=== PATIENT | male | born 1985 | race Caucasian/White ===

== ENCOUNTER 2020-06-20 21:06 | Observation (INO) | payer BC ==
[2020-06-20] MEDS ORDERED: Sodium Chloride 0.9% 1,000 ML IV ONE (21:47)
[2020-06-20] MEDS ORDERED: Sodium Chloride 0.9% 2.5 ML Syringe FLUSH PRN (21:47)
[2020-06-20] MEDS ORDERED: Ketorolac 15 MG/ML SDV IVPUSH ONE (21:47)
[2020-06-20] MEDS ORDERED: Sodium Chloride 0.9% 10 ML Syringe FLUSH PRN (21:47)
[2020-06-20] MEDS ORDERED: Ondansetron 4 MG/2 ML SDV IVPUSH ONE (21:47)
[2020-06-20 22:14] LABS: POTASSIUM,K 4.4 mmol/L (3.5-5.1)
[2020-06-20] MEDS ORDERED: Iopamidol 755 MG/ML 500 ML Multipack Bottle IVPUSH STA (22:52)
--- NOTE | 2020-06-20 23:59 | CT ---
INDICATION: Lower abdominal pain. CT ABDOMEN AND PELVIS WITH CONTRAST TECHNIQUE: Multidetector CT imaging was performed through the abdomen and pelvis following intravenous contrast administration using 100 mL Isovue 370. Coronal and sagittal reconstructions were generated. COMPARISON: None. FINDINGS: Lower chest: Minimal bibasilar lung atelectasis. Incidental lymph node calcifications adjacent to the distal esophagus. Liver: Within normal limits. Gallbladder and bile ducts: No gallbladder wall thickening or calcified gallstones. No biliary dilation identified. Pancreas: Unremarkable. Spleen: Unremarkable aside from calcified granulomas. Adrenals: No nodules or masses. Kidneys, ureters, and urinary bladder: No renal masses or hydronephrosis. No bladder mass or definite wall thickening. Gastrointestinal tract and abdominal wall: Normal caliber bowel without wall thickening or obstruction. A few colon diverticula, without evidence of diverticulitis. Calcified appendicolith within the distal appendiceal lumen. Enlarged appendix measuring up to 11 millimeters in diameter with mild periappendiceal fat stranding, consistent with appendicitis. Small fat-containing umbilical and left inguinal hernias. Vascular structures: Normal for age. Peritoneum: No free air, abscess, or significant free fluid. Lymph nodes: No pathologically enlarged nodes identified. Reproductive organs: No pelvic masses. Bones: Normal for age. IMPRESSION: Appendicitis, without evidence of perforation or other complication. DUC LIZARRAGA MD [facility] Dictated by Basil Lizarraga MD @ 06/20/2020 11:41:03 PM Dictated by: Basil Lizarraga MD @ 06/20/2020 23:57:21 (Electronically Signed)
--- NOTE | 2020-06-21 00:01 | EDM.PDOC ---
ED HPI GENERAL MEDICAL PROBLEM - General Chief Complaint: Abdominal Pain Stated Complaint: ABDOMINAL PAIN Time Seen by Provider: 06/20/20 21:08 - History of Present Illness INITIAL COMMENTS - FREE TEXT/NARRATIVE: HISTORY AND PHYSICAL: History of present illness: This a 34-year-old gentleman who presents ER today complaining of abdominal pain x1 day. Patient reports associated nausea with no vomiting or diarrhea. Patient reports he had a bowel movement earlier this morning. Patient reports no flatus since. Patient reports when he ambulates he does have some discomfort. Patient denies any flank pain. Patient denies any recent fevers, shakes, chills, vomiting, diarrhea. Patient has any dysuria, frequency, urgency. Patient denies any hematuria. Patient denies any blood in the stool. Patient reports that he ate some steak this evening and shortly after eating a steak he started feeling discomfort in his lower abdomen. Patient reports history of hypertension, denies any diabetes, liver, lung, kidney problems. Patient has no known drug allergies. Patient denies any tobacco, alcohol, drugs. Patient denies any prior abdominal or chest surgeries in the past. Review of systems: As per history of present illness and below otherwise all systems reviewed and negative. Past medical history: As per history of present illness and as reviewed below otherwise noncontributory. Surgical history: As per history of present illness and as reviewed below otherwise noncontributory. Social history: No reported history of drug or alcohol abuse. Family history: As per history of present illness and as reviewed below otherwise noncontributory. Physical exam: Constitutional: Patient is oriented to person, place, and time. Appears well- developed and well-nourished. No distress. HEENT: Moist mucous membranes Head: Normocephalic and atraumatic Eyes: Right eye exhibits no discharge. Left eye exhibits no discharge. No scleral icterus Neck: Normal range of motion. No tracheal deviation present. Cardiovascular: Normal rate and regular rhythm. Pulmonary: Effort normal, no respiratory distress. Abd: Soft, nondistended, no rebound/guarding, no psoas or obturator signs, no tenderness at Mcberney's point, no Bender's sign. Pt does not present with an exam that would be consistent with an acute surgical abdomen at this time, tenderness palpation is greatest in the right lower quadrant. Patient has mild tenderness palpation to his left lower quadrant. Musculoskeletal: Normal range of motion Neurologic: Alert and oriented to person, place and time. Skin: Beatrice, warm and dry. Psychiatric: Normal mood and affect. Behavior is normal. Judgment and thought content normal. Nursing note and vital signs have been reviewed This patient was seen and evaluated during the 2019 SARS-CoV-2 novel coronavirus pandemic period. Community viral transmission is ongoing at time of this encounter and the emergency department is operating under pandemic response procedures. Diagnostics: [] Therapeutics: [] Assessment and plan: This is a 34-year-old gentleman who presents ER today complaining of abdominal discomfort since this evening after eating dinner. Although the patient complains of left lower quadrant, on exam, the patient's pain is greatest in the right lower quadrant near McBurney's point. Patient had a CT scan in the ED which appears consistent with acute appendicitis. Patient does have an elevated WBC count. Patient's urinalysis is normal. Patient has a normal anion gap with a normal bicarb level. Case will be discussed with Dr. Truong for assistance with further care of the patient. Definitive disposition and diagnosis as appropriate pending reevaluation and review of above. lower abdominal Pain Score (Numeric/FACES): 8 - Related Data Allergies Allergy/AdvReac Type Severity Reaction Status Date / Time No Known Allergies Allergy Verified 06/21/20 06:11 Past Medical History Cardiovascular History: Reports: Hypertension - Infectious Disease History Infectious Disease History: Reports: None Social & Family History - Family History Family Medical History: No Pertinent Family History - Caffeine Use Caffeine Use: Reports: None - Recreational Drug Use Recreational Drug Use: No ED ROS GENERAL - Review of Systems Review Of Systems: See Below ED EXAM, GENERAL - Physical Exam Exam: See Below Course - Vital Signs Last Recorded V/S: Last Vital Signs Temp 98.6 F 06/21/20 16:40 Pulse 104 H 06/21/20 16:40 Resp 18 06/21/20 16:40 BP 116/55 L 06/21/20 16:40 Pulse Ox 94 L 06/21/20 16:40 - Orders/Labs/Meds Labs: Laboratory Tests 06/20/20 06/20/20 06/20/20 Range/Units 21:45 21:45 23:25 WBC 23.01 H (4.0-11.0) K/uL RBC 4.58 (4.50-5.90) M/uL Hgb 14.1 (13.0-17.0) g/dL Hct 41.9 (38.0-50.0) % MCV 91.5 (80.0-98.0) fL MCH 30.8 (27.0-32.0) pg MCHC 33.7 (31.0-37.0) g/dL RDW Std Deviation 42.4 (28.0-62.0) fl RDW Coeff of Ирина 13 (11.0-15.0) % Plt Count 312 (150-400) K/uL MPV 10.30 (7.40-12.00) fL Neut % (Auto) 87.0 H (48.0-80.0) % Lymph % (Auto) 5.0 L (16.0-40.0) % Emmons % (Auto) 8.0 (0.0-15.0) % Eos % (Auto) 0.0 (0.0-7.0) % Baso % (Auto) 0.0 (0.0-1.5) % Neut # (Auto) 20.0 H (1.4-5.7) K/uL Lymph # (Auto) 1.1 (0.6-2.4) K/uL Emmons # (Auto) 1.8 H (0.0-0.8) K/uL Eos # (Auto) 0.0 (0.0-0.7) K/uL Baso # (Auto) 0.0 (0.0-0.1) K/uL Nucleated RBC % 0.0 /100WBC Nucleated RBCs # 0 K/uL Sodium 139 (136-148) mmol/L Potassium 4.4 (3.5-5.1) mmol/L Chloride 100 (98-107) mmol/L Carbon Dioxide 26.0 (21.0-32.0) mmol/L BUN 17 (7.0-18.0) mg/dL Creatinine 1.5 H (0.8-1.3) mg/dL Est Cr Clr Drug Dosing 71.65 mL/min Estimated GFR (MDRD) 53.6 ml/min Glucose 166 H (74-106) mg/dL Calcium 9.4 (8.5-10.1) mg/dL Total Bilirubin 0.5 (0.2-1.0) mg/dL AST 22 (15-37) IU/L ALT 49 (14-63) IU/L Alkaline Phosphatase 106 (46-116) U/L Total Protein 7.8 (6.4-8.2) g/dL Albumin 4.0 (3.4-5.0) g/dL Globulin 3.8 (2.6-4.0) g/dL Albumin/Globulin Ratio 1.1 (0.9-1.6) Lipase 72 L (73-393) U/L Urine Color YELLOW Urine Appearance CLEAR Urine pH 7.5 (5.0-8.0) Ur Specific [place] <= 1.005 (1.001-1.035) Urine Protein NEGATIVE (NEGATIVE) mg/dL Urine Glucose (UA) NEGATIVE (NEGATIVE) mg/dL Urine Ketones NEGATIVE (NEGATIVE) mg/dL Urine Occult Blood NEGATIVE (NEGATIVE) Urine Nitrite NEGATIVE (NEGATIVE) Urine Bilirubin NEGATIVE (NEGATIVE) Urine Urobilinogen 1.0 (<2.0) EU/dL Ur Leukocyte Esterase NEGATIVE (NEGATIVE) SARS-CoV-2 RNA ([place]) (NEGATIVE) 06/20/20 Range/Units 23:59 WBC (4.0-11.0) K/uL RBC (4.50-5.90) M/uL Hgb (13.0-17.0) g/dL Hct (38.0-50.0) % MCV (80.0-98.0) fL MCH (27.0-32.0) pg MCHC (31.0-37.0) g/dL RDW Std Deviation (28.0-62.0) fl RDW Coeff of Ирина (11.0-15.0) % Plt Count (150-400) K/uL MPV (7.40-12.00) fL Neut % (Auto) (48.0-80.0) % Lymph % (Auto) (16.0-40.0) % Emmons % (Auto) (0.0-15.0) % Eos % (Auto) (0.0-7.0) % Baso % (Auto) (0.0-1.5) % Neut # (Auto) (1.4-5.7) K/uL Lymph # (Auto) (0.6-2.4) K/uL Emmons # (Auto) (0.0-0.8) K/uL Eos # (Auto) (0.0-0.7) K/uL Baso # (Auto) (0.0-0.1) K/uL Nucleated RBC % /100WBC Nucleated RBCs # K/uL Sodium (136-148) mmol/L Potassium (3.5-5.1) mmol/L Chloride (98-107) mmol/L Carbon Dioxide (21.0-32.0) mmol/L BUN (7.0-18.0) mg/dL Creatinine (0.8-1.3) mg/dL Est Cr Clr Drug Dosing mL/min Estimated GFR (MDRD) ml/min Glucose (74-106) mg/dL Calcium (8.5-10.1) mg/dL Total Bilirubin (0.2-1.0) mg/dL AST (15-37) IU/L ALT (14-63) IU/L Alkaline Phosphatase (46-116) U/L Total Protein (6.4-8.2) g/dL Albumin (3.4-5.0) g/dL Globulin (2.6-4.0) g/dL Albumin/Globulin Ratio (0.9-1.6) Lipase (73-393) U/L Urine Color Urine Appearance Urine pH (5.0-8.0) Ur Specific Aurora (1.001-1.035) Urine Protein (NEGATIVE) mg/dL Urine Glucose (UA) (NEGATIVE) mg/dL Urine Ketones (NEGATIVE) mg/dL Urine Occult Blood (NEGATIVE) Urine Nitrite (NEGATIVE) Urine Bilirubin (NEGATIVE) Urine Urobilinogen (<2.0) EU/dL Ur Leukocyte Esterase (NEGATIVE) SARS-CoV-2 RNA ([place]) NEGATIVE (NEGATIVE) Meds: Medications Discontinued Medications Generic Name Dose Route Start Last Admin Trade Name Freq PRN Reason Stop Dose Admin Acetaminophen 325 mg 06/21/20 12:17 Tylenol PO Q4H PRN Fever Greater Than 101 Hydrocodone Bitart/Acetaminophen 1 - 2 tab 06/21/20 12:17 [place] 325-5 Mg PO Q4H PRN Pain (moderate 4-6) Bupivacaine HCl Confirm 06/21/20 10:01 Sensorcaine-Mpf 0.5% Administered 06/21/20 10:02 Dose 10 ml .ROUTE .STK-MED ONE Cefazolin Sodium Confirm 06/21/20 10:01 Ancef Administered 06/21/20 10:02 Dose 1 gm .ROUTE .STK-MED ONE Cefoxitin Sodium Confirm 06/21/20 11:07 Mefoxin Administered 06/21/20 11:08 Dose 1 gm .ROUTE .STK-MED ONE Fentanyl Confirm 06/21/20 08:56 Sublimaze Administered 06/21/20 08:57 Dose 300 mcg .ROUTE .STK-MED ONE Fentanyl Confirm 06/21/20 11:45 Sublimaze Administered 06/21/20 11:46 Dose 100 mcg .ROUTE .STK-MED ONE Glycopyrrolate Confirm 06/21/20 08:59 Robinul Administered 06/21/20 09:00 Dose 0.8 mg .ROUTE .STK-MED ONE Sodium Chloride 1,000 mls @ 999 mls/hr 06/20/20 21:47 06/20/20 22:02 Normal Saline IV 06/20/20 22:47 999 mls/hr .Bolus ONE Administration Cefoxitin Sodium 2 gm/ Premix 50 mls @ 100 mls/hr 06/21/20 00:07 06/21/20 00:27 IV 06/21/20 00:36 100 mls/hr ONETIME ONE Administration Cefoxitin Sodium 1 gm/ Premix 50 mls @ 100 mls/hr 06/21/20 00:15 06/21/20 08:09 IV 100 mls/hr Q8H MELLISA Administration Lactated Ringer's 1,000 mls @ 125 mls/hr 06/21/20 00:15 06/21/20 09:39 Ringers, Lactated IV 125 mls/hr ASDIRECTED MELLISA Administration Cefoxitin Sodium 1 gm/ Premix 50 mls @ 100 mls/hr 06/21/20 14:00 06/21/20 14:28 IV 06/22/20 02:29 100 mls/hr Q6H MELLISA Administration Iopamidol 100 ml 06/20/20 22:52 06/20/20 22:53 Isovue Multipack-370 (76%) IVPUSH 06/20/20 22:53 100 ml ONETIME STA Administration Ketorolac Tromethamine 15 mg 06/20/20 21:47 06/20/20 22:02 Toradol IVPUSH 06/20/20 21:48 15 mg ONETIME ONE Administration Ketorolac Tromethamine Confirm 06/21/20 08:59 Toradol Administered 06/21/20 09:00 Dose 30 mg .ROUTE .STK-MED ONE Lidocaine Confirm 06/21/20 08:59 Xylocaine-Mpf 2% Administered 06/21/20 09:00 Dose 5 ml .ROUTE .STK-MED ONE Midazolam HCl Confirm 06/21/20 08:56 Versed 1 Mg/Ml Administered 06/21/20 08:57 Dose 2 mg .ROUTE .STK-MED ONE Morphine Sulfate 1 - 5 mg 06/21/20 00:10 06/21/20 15:52 Morphine IVPUSH 1 mg Q1H PRN Administration Abdominal Pain Ondansetron HCl 4 mg 06/20/20 21:47 06/20/20 22:02 Zofran IVPUSH 06/20/20 21:48 4 mg ONETIME ONE Administration Ondansetron HCl 4 mg 06/21/20 01:21 06/21/20 01:30 Zofran IVPUSH 06/21/20 01:22 4 mg ONETIME ONE Administration Ondansetron HCl Confirm 06/21/20 08:59 Zofran Administered 06/21/20 09:00 Dose 4 mg .ROUTE .STK-MED ONE Ondansetron HCl 4 mg 06/21/20 12:17 Zofran IVPUSH Q6H PRN Nausea/Vomiting Propofol Confirm 06/21/20 08:56 Diprivan 20 Ml Administered 06/21/20 08:57 Dose 200 mg .ROUTE .STK-MED ONE Rocuronium [place] Confirm 06/21/20 08:59 Rocuronium [place] Administered 06/21/20 09:00 Dose 50 mg .ROUTE .STK-MED ONE Rocuronium [place] Confirm 06/21/20 11:16 Rocuronium [place] Administered 06/21/20 11:17 Dose 50 mg .ROUTE .STK-MED ONE Sodium Chloride 10 ml 06/20/20 21:47 06/20/20 22:02 Saline Flush FLUSH 10 ml ASDIRECTED PRN Administration Keep Vein Open Sodium Chloride 2.5 ml 06/20/20 21:47 06/20/20 22:02 Saline Flush FLUSH 2.5 ml ASDIRECTED PRN Administration Keep Vein Open Departure - Departure Time of Disposition: 00:06 Disposition: Refer to Observation Condition: Good Clinical Impression: Appendicitis Qualifiers: Appendicitis type: acute appendicitis Acute appendicitis type: with localized peritonitis Appendicitis gangrene presence: without gangrene Appendicitis p erforation presence: without perforation Appendicitis abscess presence: without abscess Qualified Code(s): K35.30 - Acute appendicitis with localized peritonitis, without perforation or gangrene - Discharge Information Sepsis Event Note (ED) - Evaluation Sepsis Screening Result: No Definite Risk
[2020-06-21] MEDS ORDERED: cefOXitin 2 GM in Premix Bag 1 BAG IV ONE (00:07)
[2020-06-21] MEDS: Lactated Ringers 1,000 ML IV SCH ×2 (00:23→09:39)
[2020-06-21] MEDS ORDERED: Ondansetron 4 MG/2 ML SDV IVPUSH ONE (01:21)
[2020-06-21] MEDS: Morphine 2 MG/ML SYRINGE IVPUSH PRN ×4 (01:32→15:52)
[2020-06-21] MEDS: cefOXitin 1 GM in Premix Bag 1 BAG IV SCH ×2 (03:30→08:09)
--- NOTE | 2020-06-21 07:37 | PCM.HP.2 ---
H&P History of Present Illness - General Date of Service: 06/21/20 Admit Problem/Dx: Admission Diagnosis/Problem Admission Diagnosis/Problem Appendicitis Source of Information: Patient History Limitations: Reports: No Limitations - History of Present Illness Initial Comments - Free Text/Narative: Patient is a 34-year-old gentleman who presented to the emergency room complain ing of sudden onset of abdominal pain last evening at about 6 PM. Pain became progressively worse and seemed to be more in the right lower quadrant. He has never had anything like this. He presented to the emergency room for evaluation. He denied any history of vomiting. He was slightly nauseated and set his appetite was poor. He last had something to eat about 5:30 PM yesterday. Symptom Onset Date: 06/20/20 Symptom Onset Time: 18:00 Duration of Symptoms: Reports: Hour(s): Location: Reports: Abdomen Quality: Reports: Pressure, Sharp, Throbbing Severity: Moderate Improves with: Reports: Rest Worsens with: Reports: Movement Associated Symptoms: Reports: Loss of Appetite lower abdominal Pain Score (Numeric/FACES): 3 - Related Data Allergies/Adverse Reactions: Allergies Allergy/AdvReac Type Severity Reaction Status Date / Time No Known Allergies Allergy Verified 06/21/20 06:11 Past Medical History HEENT History: Reports: Impaired Vision Cardiovascular History: Reports: Hypertension Psychiatric History: Reports: Anxiety - Infectious Disease History Infectious Disease History: Reports: Chicken Pox - Past Surgical History HEENT Surgical History: Reports: Oral Surgery Other HEENT Surgeries/Procedures: [place] Teeth removed. Cardiovascular Surgical History: Reports: None Musculoskeletal Surgical History: Reports: Shoulder Surgery Other Musculoskeletal Surgeries/Procedures:: Neto Right Shoulder Social & Family History - Family History Family Medical History: No Pertinent Family History - Tobacco Use Tobacco Use Status *Q: Never Tobacco User Second Hand Smoke Exposure: No - Caffeine Use Caffeine Use: Reports: Coffee, Energy Drinks, Soda - Alcohol Use Alcohol Use History: Yes Alcohol Use Frequency: Rarely - Recreational Drug Use Recreational Drug Use: No H&P Review of Systems - Review of Systems: Review Of Systems: See Below General: Reports: Decreased Appetite. Denies: Fever, Chills HEENT: Reports: No Symptoms Pulmonary: Denies: Shortness of Breath, Wheezing Cardiovascular: Denies: Chest Pain, Palpitations Gastrointestinal: Reports: Abdominal Pain, Anorexia, Decreased Appetite, Flatus, Nausea. Denies: Black Stool, Bloody Stool, Constipation, Diarrhea, Distension, Vomiting Genitourinary: Denies: Dysuria, Frequency, Burning, Pain, Urgency Musculoskeletal: Denies: Neck Pain, Shoulder Pain, Arm Pain, Back Pain Skin: Denies: Cyanosis, Jaundice, Mottled, Pallor Psychiatric: Reports: Anxiety. Denies: Confusion, Depression Neurological: Denies: Confusion, Dizziness, Headache Hematologic/Lymphatic: Reports: No Symptoms Immunologic: Reports: No Symptoms Exam - Exam Exam: See Below - Vital Signs Vital Signs: Last Vital Signs Temp 98.1 F 06/21/20 04:00 Pulse 103 H 06/21/20 04:00 Resp 18 06/21/20 04:00 BP 129/67 06/21/20 04:00 Pulse Ox 96 06/21/20 04:00 Weight: 292 lb 15.909 oz - Exam Quality Assessment: No: Supplemental Oxygen, Central Line/PICC, Urinary Catheter General: Alert, Oriented, Cooperative, Mild Distress HEENT: Conjunctiva Clear, Nares Patent, PERRLA. No: Scleral Icterus Neck: Supple, Trachea Midline, +2 Carotid Pulse wo Bruit Lungs: Clear to Auscultation, Normal Respiratory Effort Cardiovascular: Regular Rate, Regular Rhythm, Tachycardia. No: Systolic Murmur, Diastolic Murmur, Rubs GI/Abdominal Exam: Normal Bowel Sounds, Soft, No Distention, Rebound, Tender. No: Guarding, Rigid (Male) Exam: Deferred Rectal (Males) Exam: Deferred Back Exam: Normal Inspection, Full Range of Motion Extremities: Normal Inspection Peripheral Pulses: 4+: Posterior Tibial (L), Posterior Tibial (R), Dorsalis Pedis (L), Dorsalis Pedis (R) Skin: Warm, Dry, Intact Neurological: Cranial Nerves Intact Psychiatric: Alert, Normal Affect, Normal Mood - Patient Data Lab Results Last 24 hrs: Laboratory Results - last 24 hr 06/20/20 06/20/20 06/20/20 Range/Units 21:45 21:45 23:25 WBC 23.01 H (4.0-11.0) K/uL RBC 4.58 (4.50-5.90) M/uL Hgb 14.1 (13.0-17.0) g/dL Hct 41.9 (38.0-50.0) % MCV 91.5 (80.0-98.0) fL MCH 30.8 (27.0-32.0) pg MCHC 33.7 (31.0-37.0) g/dL RDW Std Deviation 42.4 (28.0-62.0) fl RDW Coeff of Ирина 13 (11.0-15.0) % Plt Count 312 (150-400) K/uL MPV 10.30 (7.40-12.00) fL Neut % (Auto) 87.0 H (48.0-80.0) % Lymph % (Auto) 5.0 L (16.0-40.0) % [place] % (Auto) 8.0 (0.0-15.0) % Eos % (Auto) 0.0 (0.0-7.0) % Baso % (Auto) 0.0 (0.0-1.5) % Neut # (Auto) 20.0 H (1.4-5.7) K/uL Lymph # (Auto) 1.1 (0.6-2.4) K/uL [place] # (Auto) 1.8 H (0.0-0.8) K/uL Eos # (Auto) 0.0 (0.0-0.7) K/uL Baso # (Auto) 0.0 (0.0-0.1) K/uL Nucleated RBC % 0.0 /100WBC Nucleated RBCs # 0 K/uL Sodium 139 (136-148) mmol/L Potassium 4.4 (3.5-5.1) mmol/L Chloride 100 (98-107) mmol/L Carbon Dioxide 26.0 (21.0-32.0) mmol/L BUN 17 (7.0-18.0) mg/dL Creatinine 1.5 H (0.8-1.3) mg/dL Est Cr Clr Drug Dosing 71.65 mL/min Estimated GFR (MDRD) 53.6 ml/min Glucose 166 H (74-106) mg/dL Calcium 9.4 (8.5-10.1) mg/dL Total Bilirubin 0.5 (0.2-1.0) mg/dL AST 22 (15-37) IU/L ALT 49 (14-63) IU/L Alkaline Phosphatase 106 (46-116) U/L Total Protein 7.8 (6.4-8.2) g/dL Albumin 4.0 (3.4-5.0) g/dL Globulin 3.8 (2.6-4.0) g/dL Albumin/Globulin Ratio 1.1 (0.9-1.6) Lipase 72 L (73-393) U/L Urine Color YELLOW Urine Appearance CLEAR Urine pH 7.5 (5.0-8.0) Ur Specific [place] <= 1.005 (1.001-1.035) Urine Protein NEGATIVE (NEGATIVE) mg/dL Urine Glucose (UA) NEGATIVE (NEGATIVE) mg/dL Urine Ketones NEGATIVE (NEGATIVE) mg/dL Urine Occult Blood NEGATIVE (NEGATIVE) Urine Nitrite NEGATIVE (NEGATIVE) Urine Bilirubin NEGATIVE (NEGATIVE) Urine Urobilinogen 1.0 (<2.0) EU/dL Ur Leukocyte Esterase NEGATIVE (NEGATIVE) SARS-CoV-2 RNA ([place]) (NEGATIVE) 06/20/20 Range/Units 23:59 WBC (4.0-11.0) K/uL RBC (4.50-5.90) M/uL Hgb (13.0-17.0) g/dL Hct (38.0-50.0) % MCV (80.0-98.0) fL MCH (27.0-32.0) pg MCHC (31.0-37.0) g/dL RDW Std Deviation (28.0-62.0) fl RDW Coeff of Ирина (11.0-15.0) % Plt Count (150-400) K/uL MPV (7.40-12.00) fL Neut % (Auto) (48.0-80.0) % Lymph % (Auto) (16.0-40.0) % [place] % (Auto) (0.0-15.0) % Eos % (Auto) (0.0-7.0) % Baso % (Auto) (0.0-1.5) % Neut # (Auto) (1.4-5.7) K/uL Lymph # (Auto) (0.6-2.4) K/uL [place] # (Auto) (0.0-0.8) K/uL Eos # (Auto) (0.0-0.7) K/uL Baso # (Auto) (0.0-0.1) K/uL Nucleated RBC % /100WBC Nucleated RBCs # K/uL Sodium (136-148) mmol/L Potassium (3.5-5.1) mmol/L Chloride (98-107) mmol/L Carbon Dioxide (21.0-32.0) mmol/L BUN (7.0-18.0) mg/dL Creatinine (0.8-1.3) mg/dL Est Cr Clr Drug Dosing mL/min Estimated GFR (MDRD) ml/min Glucose (74-106) mg/dL Calcium (8.5-10.1) mg/dL Total Bilirubin (0.2-1.0) mg/dL AST (15-37) IU/L ALT (14-63) IU/L Alkaline Phosphatase (46-116) U/L Total Protein (6.4-8.2) g/dL Albumin (3.4-5.0) g/dL Globulin (2.6-4.0) g/dL Albumin/Globulin Ratio (0.9-1.6) Lipase (73-393) U/L Urine Color Urine Appearance Urine pH (5.0-8.0) Ur Specific [place] (1.001-1.035) Urine Protein (NEGATIVE) mg/dL Urine Glucose (UA) (NEGATIVE) mg/dL Urine Ketones (NEGATIVE) mg/dL Urine Occult Blood (NEGATIVE) Urine Nitrite (NEGATIVE) Urine Bilirubin (NEGATIVE) Urine Urobilinogen (<2.0) EU/dL Ur Leukocyte Esterase (NEGATIVE) SARS-CoV-2 RNA ([place]) NEGATIVE (NEGATIVE) Result Diagrams: 06/20/20 21:45 06/20/20 21:45 Imaging Impressions Last 24 hrs: CT report has personally been reviewed. Mention is made of an appendicolith in the distal appendix with mild periappendiceal inflammatory changes. This is suggestive of early acute appendicitis. Sepsis Event Note - Evaluation Sepsis Screening Result: Sepsis Risk - Focused Exam Vital Signs: Vital Signs Temp Pulse Resp BP Pulse Ox 06/21/20 04:00 98.1 F 103 H 18 129/67 96 06/21/20 02:07 98.2 F 104 H 18 144/80 H 97 06/21/20 01:17 105 H 16 143/47 H 97 06/20/20 23:30 95 16 126/77 98 06/20/20 21:25 95.7 F L 101 H 20 108/65 97 - Problem List (1) Right lower quadrant pain SNOMED Code(s): 593841142 ICD Code: R10.31 - RIGHT LOWER QUADRANT PAIN Status: Acute Priority: High Current Visit: Yes (2) Appendicitis SNOMED Code(s): 09218722 ICD Code: K37 - UNSPECIFIED APPENDICITIS Status: Acute Priority: High Current Visit: Yes Qualifiers: Appendicitis type: acute appendicitis Problem List Initiated/Reviewed/Updated: Yes Orders Last 24hrs: Active Orders 24 hr Category Date Time Status Patient Status [ADT] Routine ADT 06/21/20 00:04 Active Antiembolic Devices [RC] PER UNIT ROUTINE Care 06/21/20 07:31 Ordered Insert Urinary Catheter [OM.PC] Timed Care 06/21/20 07:31 Ordered Oxygen Therapy [RC] ASDIRECTED Care 06/21/20 07:31 Ordered RT Incentive Spirometry [RC] Q1HWA Care 06/21/20 07:31 Ordered Skin Preparation [RC] .PREOP Care 06/21/20 07:31 Ordered Urinary Catheter Assessment [RC] ASDIRECTED Care 06/21/20 07:31 Ordered Urinary Catheter Assessment [RC] ASDIRECTED Care 06/21/20 07:31 Ordered Urinary Catheter Assessment [RC] ASDIRECTED Care 06/21/20 07:31 Ordered Vital Signs [RC] PER UNIT ROUTINE Care 06/21/20 07:31 Ordered NPO Now [Nothing per Oral Now Diet] [DIET] Diet 06/21/20 Breakfast Active Nothing Per Oral Diet [DIET] Diet 06/21/20 Dinner Ordered Lactated Ringers [Ringers, Lactated] 1,000 ml Med 06/21/20 00:15 Active IV ASDIRECTED Morphine Med 06/21/20 00:10 Active 1 - 5 mg IVPUSH Q1H PRN Sodium Chloride 0.9% [Saline Flush] Med 06/20/20 21:47 Active 10 ml FLUSH ASDIRECTED PRN Sodium Chloride 0.9% [Saline Flush] Med 06/20/20 21:47 Active 2.5 ml FLUSH ASDIRECTED PRN cefOXitin [Mefoxin in Dextrose,Iso-Osm 1 GM/50 ML] 1 gm Med 06/21/20 00:15 Active Premix Bag 1 bag IV Q8H Antiembolic Hose [OM.PC] Routine Oth 06/21/20 07:31 Ordered Saline Lock Insert [OM.PC] Stat Oth 06/20/20 21:47 Ordered Resuscitation Status Routine Resus Stat 06/21/20 07:30 Ordered Medication Orders Cefoxitin Sodium 1 gm/ Premix 50 mls @ 100 mls/hr IV Q8H [facility] Last Admin: 06/21/20 03:30 Dose: Not Given Documented by: JIMMY Lactated Ringer's (Ringers, Lactated) 1,000 mls @ 125 mls/hr IV ASDIRECTED MELLISA Last Admin: 06/21/20 00:23 Dose: 125 mls/hr Documented by: ROME Morphine Sulfate (Morphine) 1 - 5 mg IVPUSH Q1H PRN PRN Reason: Abdominal Pain Last Admin: 06/21/20 04:36 Dose: 1 mg Documented by: Admin: 06/21/20 01:32 Dose: 1 mg Documented by: ROME Sodium Chloride (Saline Flush) 10 ml FLUSH ASDIRECTED PRN PRN Reason: Keep Vein Open Last Admin: 06/20/20 22:02 Dose: 10 ml Documented by: HATTIE Sodium Chloride (Saline Flush) 2.5 ml FLUSH ASDIRECTED PRN PRN Reason: Keep Vein Open Last Admin: 06/20/20 22:02 Dose: 2.5 ml Documented by: HATTIE Assessment/Plan Comment:: Laparoscopic appendectomy, possible open appendectomy. Both operative procedures, along with the risks, including, but not limited to, bleeding, infection, pneumonia, deep venous thrombosis, pulmonary emboli, myocardial infarction, and adjacent organ injury have been reviewed with the patient who voices understanding, offers no questions and agrees to proceed. Patient has tested negative for SARS-CoV-2.
--- NOTE | 2020-06-21 08:21 | PCM.PREANE ---
Preanesthetic Assessment - Anesthesia/Transfusion/Family Hx Anesthesia History: Prior Anesthesia Without Reaction Family History of Anesthesia Reaction: No Transfusion History: No Prior Transfusion(s) - Review of Systems General: No Symptoms Pulmonary: No Symptoms Cardiovascular: No Symptoms Gastrointestinal: Abdominal Pain Neurological: No Symptoms Other: Reports: None - Physical Assessment NPO Status Date: 06/20/20 Vital Signs: Last Vital Signs Temp 99.6 F 06/21/20 08:00 Pulse 103 H 06/21/20 08:00 Resp 18 06/21/20 08:00 BP 116/64 06/21/20 08:00 Pulse Ox 95 06/21/20 08:00 Height: 5 ft 10 in Weight: 132.9 kg Mental Status: Alert & Oriented x3 Airway Class: Mallampati = 2 Dentition: Reports: Normal Dentition ROM/Head Extension: Full Lungs: Clear to Auscultation, Normal Respiratory Effort Cardiovascular: Regular Rate, Regular Rhythm - Lab Values: Laboratory Last Values WBC 23.01 K/uL (4.0-11.0) H 06/20/20 21:45 RBC 4.58 M/uL (4.50-5.90) 06/20/20 21:45 Hgb 14.1 g/dL (13.0-17.0) 06/20/20 21:45 Hct 41.9 % (38.0-50.0) 06/20/20 21:45 MCV 91.5 fL (80.0-98.0) 06/20/20 21:45 MCH 30.8 pg (27.0-32.0) 06/20/20 21:45 MCHC 33.7 g/dL (31.0-37.0) 06/20/20 21:45 RDW Std Deviation 42.4 fl (28.0-62.0) 06/20/20 21:45 RDW Coeff of Ирина 13 % (11.0-15.0) 06/20/20 21:45 Plt Count 312 K/uL (150-400) 06/20/20 21:45 MPV 10.30 fL (7.40-12.00) 06/20/20 21:45 Neut % (Auto) 87.0 % (48.0-80.0) H 06/20/20 21:45 Lymph % (Auto) 5.0 % (16.0-40.0) L 06/20/20 21:45 [place] % (Auto) 8.0 % (0.0-15.0) 06/20/20 21:45 Eos % (Auto) 0.0 % (0.0-7.0) 06/20/20 21:45 Baso % (Auto) 0.0 % (0.0-1.5) 06/20/20 21:45 Neut # (Auto) 20.0 K/uL (1.4-5.7) H 06/20/20 21:45 Lymph # (Auto) 1.1 K/uL (0.6-2.4) 06/20/20 21:45 [place] # (Auto) 1.8 K/uL (0.0-0.8) H 06/20/20 21:45 Eos # (Auto) 0.0 K/uL (0.0-0.7) 06/20/20 21:45 Baso # (Auto) 0.0 K/uL (0.0-0.1) 06/20/20 21:45 Nucleated RBC % 0.0 /100WBC 06/20/20 21:45 Nucleated RBCs # 0 K/uL 06/20/20 21:45 Sodium 139 mmol/L (136-148) 06/20/20 21:45 Potassium 4.4 mmol/L (3.5-5.1) 06/20/20 21:45 Chloride 100 mmol/L (98-107) 06/20/20 21:45 Carbon Dioxide 26.0 mmol/L (21.0-32.0) 06/20/20 21:45 BUN 17 mg/dL (7.0-18.0) 06/20/20 21:45 Creatinine 1.5 mg/dL (0.8-1.3) H 06/20/20 21:45 Est Cr Clr Drug Dosing 71.65 mL/min 06/20/20 21:45 Estimated GFR (MDRD) 53.6 ml/min 06/20/20 21:45 Glucose 166 mg/dL (74-106) H 06/20/20 21:45 Calcium 9.4 mg/dL (8.5-10.1) 06/20/20 21:45 Total Bilirubin 0.5 mg/dL (0.2-1.0) 06/20/20 21:45 AST 22 IU/L (15-37) 06/20/20 21:45 ALT 49 IU/L (14-63) 06/20/20 21:45 Alkaline Phosphatase 106 U/L (46-116) 06/20/20 21:45 Total Protein 7.8 g/dL (6.4-8.2) 06/20/20 21:45 Albumin 4.0 g/dL (3.4-5.0) 06/20/20 21:45 Globulin 3.8 g/dL (2.6-4.0) 06/20/20 21:45 Albumin/Globulin Ratio 1.1 (0.9-1.6) 06/20/20 21:45 Lipase 72 U/L (73-393) L 06/20/20 21:45 Urine Color YELLOW 06/20/20 23:25 Urine Appearance CLEAR 06/20/20 23:25 Urine pH 7.5 (5.0-8.0) 06/20/20 23:25 Ur Specific [place] <= 1.005 (1.001-1.035) 06/20/20 23:25 Urine Protein NEGATIVE mg/dL (NEGATIVE) 06/20/20 23:25 Urine Glucose (UA) NEGATIVE mg/dL (NEGATIVE) 06/20/20 23:25 Urine Ketones NEGATIVE mg/dL (NEGATIVE) 06/20/20 23:25 Urine Occult Blood NEGATIVE (NEGATIVE) 06/20/20 23:25 Urine Nitrite NEGATIVE (NEGATIVE) 06/20/20 23:25 Urine Bilirubin NEGATIVE (NEGATIVE) 06/20/20 23:25 Urine Urobilinogen 1.0 EU/dL (<2.0) 06/20/20 23:25 Ur Leukocyte Esterase NEGATIVE (NEGATIVE) 06/20/20 23:25 SARS-CoV-2 RNA ([place]) NEGATIVE (NEGATIVE) 06/20/20 23:59 - Allergies Allergies/Adverse Reactions: Allergies Allergy/AdvReac Type Severity Reaction Status Date / Time No Known Allergies Allergy Verified 06/21/20 06:11 - Blood Blood Available: No - Anesthesia Plan Pre-Op Medication Ordered: None - Acknowledgements Anesthesia Type Planned: General Anesthesia Pt an Appropriate Candidate for the Planned Anesthesia: Yes Alternatives and Risks of Anesthesia Discussed w Pt/Guardian: Yes Pt/Guardian Understands and Agrees with Anesthesia Plan: Yes Additional Comments: PMH: MO, KP, htn, Stated allergy to Keflex, but received Mefoxin without problem last night PLAN: get PreAnesthesia Questionnaire HEENT History: Reports: Impaired Vision Cardiovascular History: Reports: Hypertension Psychiatric History: Reports: Anxiety - Infectious Disease History Infectious Disease History: Reports: Chicken Pox - Past Surgical History HEENT Surgical History: Reports: Oral Surgery Other HEENT Surgeries/Procedures: [place] Teeth removed. Cardiovascular Surgical History: Reports: None Musculoskeletal Surgical History: Reports: Shoulder Surgery Other Musculoskeletal Surgeries/Procedures:: Neto Right Shoulder - SUBSTANCE USE Tobacco Use Status *Q: Never Tobacco User Tobacco Use Within Last Twelve Months: No Second Hand Smoke Exposure: No Recreational Drug Use History: No - CURRENT (IN HOUSE) MEDS Current Meds: Current Medications Cefoxitin Sodium 1 gm/ Premix 50 mls @ 100 mls/hr IV Q8H [facility] Last Admin: 06/21/20 08:09 Dose: 100 mls/hr Documented by: Lactated Ringer's (Ringers, Lactated) 1,000 mls @ 125 mls/hr IV ASDIRECTED [facility] Last Admin: 06/21/20 00:23 Dose: 125 mls/hr Documented by: Morphine Sulfate (Morphine) 1 - 5 mg IVPUSH Q1H PRN PRN Reason: Abdominal Pain Last Admin: 06/21/20 04:36 Dose: 1 mg Documented by: Sodium Chloride (Saline Flush) 10 ml FLUSH ASDIRECTED PRN PRN Reason: Keep Vein Open Last Admin: 06/20/20 22:02 Dose: 10 ml Documented by: Sodium Chloride (Saline Flush) 2.5 ml FLUSH ASDIRECTED PRN PRN Reason: Keep Vein Open Last Admin: 06/20/20 22:02 Dose: 2.5 ml Documented by: Discontinued Medications Sodium Chloride (Normal Saline) 1,000 mls @ 999 mls/hr IV .Bolus ONE Stop: 06/20/20 22:47 Last Admin: 06/20/20 22:02 Dose: 999 mls/hr Documented by: Cefoxitin Sodium 2 gm/ Premix 50 mls @ 100 mls/hr IV ONETIME ONE Stop: 06/21/20 00:36 Last Admin: 06/21/20 00:27 Dose: 100 mls/hr Documented by: Iopamidol (Isovue Multipack-370 (76%)) 100 ml IVPUSH ONETIME STA Stop: 06/20/20 22:53 Last Admin: 06/20/20 22:53 Dose: 100 ml Documented by: Ketorolac Tromethamine (Toradol) 15 mg IVPUSH ONETIME ONE Stop: 06/20/20 21:48 Last Admin: 06/20/20 22:02 Dose: 15 mg Documented by: Ondansetron HCl (Zofran) 4 mg IVPUSH ONETIME ONE Stop: 06/20/20 21:48 Last Admin: 06/20/20 22:02 Dose: 4 mg Documented by: Ondansetron HCl (Zofran) 4 mg IVPUSH ONETIME ONE Stop: 06/21/20 01:22 Last Admin: 06/21/20 01:30 Dose: 4 mg Documented by:
[2020-06-21] MEDS ORDERED: Propofol 200 MG/20 ML SDV ONE (08:56)
[2020-06-21] MEDS ORDERED: Midazolam 1 MG/ML 2 ML SDV ONE (08:56)
[2020-06-21] MEDS ORDERED: fentaNYL 100 MCG/2 ML SDV ONE ×2 (08:56→11:45)
[2020-06-21] MEDS ORDERED: Glycopyrrolate 0.2 MG/ML SDV ONE (08:59)
[2020-06-21] MEDS ORDERED: Ondansetron 4 MG/2 ML SDV ONE (08:59)
[2020-06-21] MEDS ORDERED: Rocuronium Bromide 50 MG/5 ML Syringe ONE ×2 (08:59→11:16)
[2020-06-21] MEDS ORDERED: Ketorolac 30 MG/ML SDV ONE (08:59)
[2020-06-21] MEDS ORDERED: Lidocaine 2% 5 ML SDV ONE (08:59)
[2020-06-21] MEDS ORDERED: Bupivacaine 0.5% 10 ML SDV ONE (10:01)
[2020-06-21] MEDS ORDERED: ceFAZolin 1 GM Vial ONE (10:01)
[2020-06-21] MEDS ORDERED: cefOXitin 1 GM Vial ONE (11:07)
--- NOTE | 2020-06-21 12:16 | PCM.OPNOTE ---
- General Post-Op/Procedure Note Date of Surgery/Procedure: 06/21/20 Operative Procedure(s): Laparoscopic appendectomy Pre Op Diagnosis: Right lower quadrant pain. Acute abdomen. Post-Op Diagnosis: Acute appendicitis Anesthesia Technique: General ET Tube (ASA IIE) Primary Surgeon: Ernst Truong Fluid Replacement, Intraop: 700 Output, Urine Amount: 150 EBL in mLs: 10 Condition: Good Free Text/Narrative:: Intake & Output 06/21/20 06/21/20 06/21/20 03:59 11:59 19:59 Intake Total 0 Balance 0 DICTATION 226707 CPT CODE 18913
[2020-06-21] MEDS ORDERED: Morphine 10 MG/ML Syringe IVPUSH PRN (12:17)
[2020-06-21] MEDS ORDERED: Acetaminophen/HYDROcodone 325-5 MG Tab PO PRN (12:17)
[2020-06-21] MEDS ORDERED: Acetaminophen 325 MG Tab PO PRN (12:17)
[2020-06-21] MEDS ORDERED: Ondansetron 4 MG/2 ML SDV IVPUSH PRN (12:17)
[2020-06-21] MEDS ORDERED: Lactated Ringers 1,000 ML IV SCH (12:30)
--- NOTE | 2020-06-21 13:11 | PCM.POSTAN ---
POST ANESTHESIA ASSESSMENT - MENTAL STATUS Mental Status: Alert, Oriented - VITAL SIGNS Vital Signs: Last Vital Signs Temp 36.7 F L 06/21/20 12:08 Pulse 106 H 06/21/20 12:32 Resp 20 06/21/20 12:32 BP 107/66 06/21/20 12:32 Pulse Ox 95 06/21/20 12:32 - RESPIRATORY Respiratory Status: Respiratory Rate WNL, Airway Patent, O2 Saturation Stable - CARDIOVASCULAR CV Status: Pulse Rate WNL, Blood Pressure Stable - GASTROINTESTINAL GI Status: No Symptoms - POST OP HYDRATION Hydration Status: Adequate & Stable
[2020-06-21] MEDS ORDERED: cefOXitin 1 GM in Premix Bag 1 BAG IV SCH (14:00)
--- NOTE | 2020-06-21 16:02 | OR ---
SURGEON: Ernst Truong M.D. DATE OF PROCEDURE: 06/21/2020 OPERATION PERFORMED: Laparoscopic appendectomy. PRIMARY SURGEON: Ernst Truong MD ANESTHESIA: General endotracheal. ASA CLASSIFICATION: IIE. PREOPERATIVE DIAGNOSIS: Acute abdomen. POSTOPERATIVE DIAGNOSIS: Acute appendicitis without perforation or abscess. ESTIMATED BLOOD LOSS: 10 mL. INTRAOPERATIVE FLUID REPLACEMENT: 700 mL of crystalloid. INTRAOPERATIVE URINARY OUTPUT: 150 mL. DESCRIPTION OF PROCEDURE: The patient was taken to the operating room, placed on the operating table in the supine position. Time-out was called for appropriate identification of the patient and procedure. Sequential compression boots were placed. Following satisfactory attainment of general endotracheal anesthesia, a Eubanks catheter was placed in the patient's urinary bladder. The abdomen was prepped with DuraPrep solution. Sterile drapes were applied. The skin just above the umbilicus was infiltrated with 0.5% Marcaine solution. Skin incision was made and deepened through the subcutaneous tissue obtaining hemostasis with the use of electrocautery. The Veress needle was introduced into the peritoneal cavity. Saline drop test was positive. Carbon dioxide pneumoperitoneum was established with the release set at 13 cm of water. Once a satisfactory pneumoperitoneum was established, 5 mm camera and port were placed through the supraumbilical incision. No acute inflammatory changes were noted in the peritoneal cavity. The patient was now positioned with his head down and rolled left. Under camera vision, 12 mm suprapubic and 5 mm left lower quadrant ports were placed. Each incision had preemptively been infiltrated with 0.5% Marcaine solution. The cecum was identified and then the appendix was identified. There were some mild inflammatory changes. The mesoappendix was taken down with the Harmonic scalpel. Once that was completely mobilized, the base of the appendix was doubly ligated with 0 PDS Endoloops. The appendix was amputated using the Harmonic scalpel and promptly placed in an Endo Catch pouch. The right lower quadrant was then inspected for hemostasis. There was a small amount of fluid present. This was aspirated, following which the right lower quadrant was irrigated with several 100 mL of sterile saline solution. All fluid was aspirated. The patient was now returned to a neutral position. The Endo Catch containing appendix and 12 mm suprapubic ports were removed. The left lower quadrant port was removed under camera vision and finally the supraumbilical camera and port were removed. Wounds were inspected for hemostasis and small bleeding sites were electrocoagulated. All incisions were closed in two layers approximating the subcutaneous tissue with 3-0 Vicryl and the skin with subcuticular 4-0 Monocryl. The incisions were Steri-Stripped and dressed with sterile Tegaderm pads. Sponge, needle, and instrument counts were all correct. Eubanks catheter was removed prior to emergence from anesthesia. Following emergence from anesthesia and extubation, the patient was taken to recovery room in stable condition. KIKI / SIRI /[id number]
== END 2020-06-21 18:00 | disposition home or self-care (01) ==
LOC: MW.ED 21:06 → MW.MS 06-21 00:04
PROVIDERS: ADMIT Surgery; ATTEND Surgery
DX: K35.80 Unspecified acute appendicitis (principal); I10 Essential (primary) hypertension; F41.9 Anxiety disorder, unspecified; N17.9 Acute kidney failure, unspecified; Z01.812 Encounter for preprocedural laboratory examination; Z20.822 Contact with and (suspected) exposure to COVID-19; Z98.890 Other specified postprocedural states
CPT/HCPCS: 36415; 44970; 74177; 80053; 81003; 83690; 85025; 87635; J0694; J1885; J2001; J2250; J2270; J2405; J2704; J3010; J3490; J7030; J7120; Q9967; 88304; J0690; U0002